=== PATIENT | female | born 1980 | race Caucasian/White ===

== ENCOUNTER 2017-12-03 06:24 | Day surgery (SDC) | payer BC ==
[2017-11-30 10:33] LABS: HEMATOCRIT 38.9 % (36.0-48.0); HEMOGLOBIN 12.9 g/dL (12-16); MCH 29.3 pg (26.0-34.0); MCHC 33.2 g/dL (31.0-37.0); MCV 88.4 fL (80.0-100.0); MEAN PLATELET VOLUME 9.7 fL (7.4-10.4); RBC 4.4 10x6/uL (4.00-5.40); RDW 13.5 % (11.5-14.5)
[~2017-12-03] VITALS: Ht 165.1 cm; Wt 131.5 kg
[~2017-12-03 06:24] MED LIST: CYCLOBENZAPRINE10 MG PO; KLONOPIN0.5 MG PO; LISINOPRIL10 MG PO; PROTONIX40 MG PO; PROZAC20 MG PO
[2017-12-03 07:00] VITALS: BP 128/98; Ht 165.1 cm; Wt 131.5 kg
[2017-12-03] MEDS ORDERED: MIRALAX17 GM PO (08:50)
[2017-12-03] MEDS ORDERED: VALIUM5 MG PO (08:50)
== END 2017-12-03 11:45 | disposition home or self-care (01) ==
LOC: D.OPS 06:24 → D.PAN 08:00 → D.OPS 08:00
PROVIDERS: Anesthesiology
DX: K64.8 Other hemorrhoids (principal); E66.01 Morbid (severe) obesity due to excess calories; Z68.42 Body mass index [BMI] 45.0-49.9, adult; F17.200 Nicotine dependence, unspecified, uncomplicated; Z01.812 Encounter for preprocedural laboratory examination

== ENCOUNTER → 2019-08-11 23:42 | Outpatient (CLI) | payer OTHER ==
[2017-12-03 07:00] VITALS: BMI 48.3
[~2019-08-11 23:42] MED LIST changes: +MIRALAX17 GM PO; +VALIUM5 MG PO
== END | disposition home or self-care (01) ==
LOC: D.MAMMO 07-02 13:45
PROVIDERS: ATTEND Emergency Medicine
DX: Z12.31 Encounter for screening mammogram for malignant neoplasm of breast (principal)